=== PATIENT | male | born 2000 | race Caucasian/White ===

== ENCOUNTER 2021-07-19 19:15 | Emergency (ER) | payer OTHER ==
[~2021-07-19] VITALS: Ht 172.7 cm; Wt 59.0 kg
[2021-07-19 20:00] VITALS: BP 139/92
--- NOTE | 2021-07-19 20:21 | ED General ---
General Stated Complaint: CUT FINGER Source of Information: Patient Exam Limitations: No Limitations History of Present Illness Date Seen by Provider: Jul 19, 2021 Time Seen by Provider: 20:20 Initial Comments To ER with a cut to the left pointer finger. This is superficial and occurred at work while washing a pizza cutter. Tetanus is up-to-date. Timing/Duration: 1/2 Hour Severity: Mild Associated Systoms: Denies Symptoms Allergies and Home Medications Patient Home Medication List Home Medication List Reviewed: Yes Review of Systems Review of Systems Constitutional: see HPI EENTM: see HPI Respiratory: no symptoms reported Cardiovascular: no symptoms reported Genitourinary: no symptoms reported Musculoskeletal: no symptoms reported Skin: no symptoms reported Psychiatric/Neurological: No Symptoms Reported Hematologic/Lymphatic: No Symptoms Reported Immunological/Allergic: no symptoms reported Physical Exam Vital Signs Vital Signs - First Documented 07/19/21 20:00 Temp 37.1 Pulse 84 Resp 18 B/P (MAP) 139/92 (108) Pulse Ox 99 O2 Delivery Room Air Capillary Refill : Height, Weight, BMI Height: '" Weight: lbs. oz. kg; BMI Method: General Appearance: No Apparent Distress, WD/WN Eyes: Bilateral Eye Normal Inspection, Bilateral Eye PERRL, Bilateral Eye EOMI Neck: Full Range of Motion, Normal Inspection Respiratory: No Accessory Muscle Use, No Respiratory Distress Cardiovascular: Regular Rate, Rhythm, Normal Peripheral Pulses Gastrointestinal: Normal Bowel Sounds, Non Tender, Soft Extremity: Normal Capillary Refill, Normal Inspection Neurologic/Psychiatric: Alert, Oriented x3, Other (Right pointer finger has a superficial laceration. This was scrubbed with vaccine/saline solution then glued.) Skin: Normal Color, Warm/Dry Progress/Results/Core Measures Suspected Sepsis SIRS Temperature: Pulse: Respiratory Rate: Blood Pressure / Mean: Results/Orders Vital Signs/I&O 07/19/21 20:00 Temp 37.1 Pulse 84 Resp 18 B/P (MAP) 139/92 (108) Pulse Ox 99 O2 Delivery Room Air Capillary Refill : Departure Impression Primary Impression: Finger laceration Disposition: 01 HOME, SELF-CARE Condition: Stable Departure-Patient Inst. Decision time for Depature: 20:21 Patient Instructions: Laceration Repair With Glue (DC) Add. Discharge Instructions: 1. Allow the glue to fall off on its own with SOFY GORDON APRN Jul 19, 2021 20:21
== END 2021-07-19 20:24 | disposition home or self-care (01) ==
LOC: EDUNIT# 19:15 → ER 19:19
DX: S61.210A Laceration without foreign body of right index finger without damage to nail, initial encounter (principal); W27.4XXA Contact with kitchen utensil, initial encounter
CPT/HCPCS: 12001